=== PATIENT | female | born 1980 | race African-American/Black ===

== ENCOUNTER 2016-07-03 14:22 | Emergency (ER) | payer BC ==
[~2016-07-03] VITALS: Wt 94.0 kg
[~2016-07-03 14:22] MED LIST: BACTDS PO; CEPH-443 PO; FLUC150T17 PO; IBUP-1542 PO
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
== END 2016-07-03 15:11 | disposition home or self-care (01) ==
LOC: FTE 14:22 → E/R 15:11
DX: R04.0 Epistaxis (principal); B34.9 Viral infection, unspecified; R07.9 Chest pain, unspecified
CPT/HCPCS: 93005

== ENCOUNTER 2017-04-27 04:31 | Emergency (ER) | payer BC ==
[~2017-04-27] VITALS: Ht 160 cm; Wt 110.0 kg
[2017-04-27 04:32] VITALS: Ht 160 cm; Wt 110.0 kg
[2017-04-27] MEDS ORDERED: traMADol 50 MG TAB PO ONE (05:00)
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
--- NOTE | 2017-04-27 05:25 | RADRPT ---
PROCEDURE: Right wrist series CLINICAL INDICATION: Rib is pain TECHNIQUE: AP oblique and lateral views with ulnar deviation view COMPARISON: None available FINDINGS: No acute fractures or dislocations are present. The visualized soft tissues and bony mineralization are normal. No radio dense foreign bodies are present other than jewelry noted on the fourth digit. The joint spaces are intact. IMPRESSION: 1. Normal right wrist series RPTAT: HDC .Kathryn Marin MD, MD Date Time Electronically viewed and signed by .Kathryn Marin MD, on 04/27/2017 05:25 .C/
[2017-04-27] MEDS ORDERED: IBUP-1542 PO (05:35)
[2017-04-27] MEDS ORDERED: TRAM50TA2 PO (05:35)
== END 2017-04-27 05:57 | disposition home or self-care (01) ==
LOC: FTE 04:31
DX: S63.501A Unspecified sprain of right wrist, initial encounter (principal); V89.2XXA Person injured in unspecified motor-vehicle accident, traffic, initial encounter

== ENCOUNTER 2018-01-14 22:08 | Emergency (ER) | END 2018-01-15 04:26 | disposition home or self-care (01) ==

== ENCOUNTER 2018-06-09 05:59 | Emergency (ER) | payer BC ==
[~2018-06-09] VITALS: Ht 161.3 cm; Wt 111.0 kg
[~2018-06-09 05:59] MED LIST changes: +FLUC150T PO; -FLUC150T17 PO; +TRAM50TA2 PO
[2018-06-09 06:06] VITALS: BP 143/84; PULSE 90; RESP 20; Ht 161.3 cm; Wt 111.0 kg
[2018-06-09] MEDS ORDERED: ALBU18HF INHALATION (07:28)
[2018-06-09] MEDS ORDERED: PRED20TA PO (07:28)
[2018-06-09] MEDS ORDERED: D-ME473S2 PO (07:28)
[2018-06-09] MEDS ORDERED: CETI10CA PO (07:28)
--- NOTE | 2018-06-09 08:24 | ERD ---
ER Documentation Chief Complaint Chief Complaint c/o off and on dry cough x1 week. HPI 38-year-old female patient with no significant past medical history presents to the ED complaining of intermittent dry cough that started for 1 week. Patient reports that she was exposed to a certain type of dog, 1 week ago, and feels like this could be the reason why triggered her cough. Patient reports that when she coughs, the cough is unstoppable. Reports that she has been trying Robitussin, halls cough drops, without any relief. Denies any sick contacts. Denies any fever, chills, nausea, vomiting, diarrhea, neck stiffness, chest pain, shortness of breath. ROS All systems reviewed and are negative except as per history of present illness. Medications Home Meds Active Scripts Prednisone* (Prednisone*) 20 Mg Tab, 40 MG PO DAILY for 4 Days, TAB Prov:DESMOND GUERRA PA-C 06/09/18 Cetirizine Hcl* (Zyrtec*) 10 Mg Capsule, 10 MG PO DAILY, #10 TAB.CHEW Prov:DESMOND GUERRA PA-C 06/09/18 Albuterol Sulfate* (Ventolin HFA*) 18 Gm Hfa.aer.ad, 2 PUFF INHALATION Q4H, #1 INHALER Prov:DESMOND GUERRA PA-C 06/09/18 Dextromethorphan Hb-Promethazine Hcl* (Promethazine DM* Syrup) 473 Ml Syrup, 5 ML PO Q6 PRN for COUGH, #100 ML Prov:DESMOND GUERRA PA-C 06/09/18 Tramadol HCl (Tramadol HCl) 50 Mg Tablet, 50 MG PO Q6 PRN for PAIN, #20 TAB Prov:LUIZ DRAPER PA-C 01/15/18 Tramadol HCl (Tramadol HCl) 50 Mg Tablet, 50 MG PO Q6 for SEVERE PAIN LEVEL 7- 10, #20 TAB Prov:SHERYL SANTIAGO NP 04/27/17 Ibuprofen* (Motrin*) 600 Mg Tab, 600 MG PO Q6H PRN for PAIN AND OR ELEVATED TEMP, #30 TAB Prov:SHERYL SANTIAGO NP 04/27/17 Fluconazole* (Diflucan*) 150 Mg Tablet, 150 MG PO ONCE, #1 TAB Prov:RAVEN CURIEL 03/23/16 Ibuprofen* (Motrin*) 600 Mg Tab, 600 MG PO Q6, #30 TAB Prov:RAVEN CURIEL 03/23/16 Sulfamethoxazole-Trimethoprim* (Bactrim* DS) 800-160 Mg Tab, 1 TAB PO BID for 7 Days, TAB Prov:RAVEN CURIEL 03/23/16 Cephalexin* (Keflex*) 500 Mg Capsule, 500 MG PO BID for 7 Days, CAP Prov:RAVEN CURIEL 03/23/16 Allergies Allergies: Coded Allergies: iodine (Verified Allergy, Unknown, 03/23/16) PMhx/Soc Medical and Surgical Hx: pt denies Medical Hx, pt denies Surgical Hx History of Surgery: No Anesthesia Reaction: No Hx Neurological Disorder: No Hx Respiratory Disorders: No Hx Cardiac Disorders: No Hx Psychiatric Problems: No Hx Miscellaneous Medical Probl: No Hx Alcohol Use: No Hx Substance Use: No Hx Tobacco Use: No Smoking Status: Never smoker FmHx Family History: No diabetes, No coronary disease Physical Exam Vitals Vital Signs Date Temp Pulse Resp B/P (MAP) Pulse Ox O2 O2 Flow FiO2 Time Delivery Rate 06/09/18 97.9 90 20 143/84 100 06:06 (103) Physical Exam Const: [id number], well-nourished. In no acute distress. Head: Atraumatic, normocephalic Eyes: Normal Conjunctiva without injection. No purulent discharge. PERRL. EOMI ENT: Normal external ear. Ear canal without erythema. Tympanic membrane pearly spangler without effusion or bulging. Nasal canal clear with normal turbinates. Moist oropharynx without tonsillar exudates. Non-erythematous pharynx. Uvula midline. No drooling. No trismus. Neck: Full range of motion. No meningismus. No cervical lymphadenopathy. Resp: Clear to auscultation bilaterally. No wheezing, rhonchi, rales, or crackles. No accessory muscle use. No retractions. Cardio: Regular rate and rhythm. No murmurs, rubs or gallops. Abd: Soft, non tender, non distended. Normal bowel sounds. No palpable masses. No rebound tenderness. No guarding. Skin: No petechiae or rashes Back: No midline tenderness. No CVA tenderness. Ext: No cyanosis, or edema. Neur: Awake and alert. Psych: Normal Mood and Affect Results 24 hrs Laboratory Tests Test 06/09/18 06:42 POC Beta HCG, Qualitative NEGATIVE Procedures/MDM 38-year-old female patient with no significant past medical history presents to the ED complaining of intermittent cough that started 1 week ago. Patient is afebrile and nontoxic-appearing. Urine negative. Pertussis DFA test was ordered to further evaluate patient since patient appears to have a coughing spell when she does cough. Pending pertussis results. Frontals include viral URI. There is a low suspicion for pneumonia, pneumothorax, mononucleosis, pulmonary embolism, epiglottitis, otitis media, otitis externa, viral/strep pharyngitis, sinusitis, myocarditis, pericarditis, endocarditis, peritonsillar abscess, mastoiditis, retropharyngeal abscess, meningitis, sepsis, acute abdomen or other emergent conditions. Fluids, rest, and symptomatic treatment are recommended for the management of patient's symptoms. Diagnosis: Cough Discharge medications: Promethazine DM, Prednisone, Zyrtec, Ventolin Follow up with primary care physician in 1-2 days. Instructed patient to return to the ED sooner for any worsening symptoms. Patient's questions were answered. Patient is hemodynamically stable. Patient understood and agreed with discharge plan. Patient discharged stable. Disclaimer: Inadvertent spelling and grammatical errors are likely due to E HR/dictation software use and do not reflect on the overall quality of patient care. Also, please note that the electronic time recorded on this note does not necessarily reflect the actual time of the patient encounter. Departure Diagnosis: Primary Impression: Cough Condition: Stable Patient Instructions: Pertussis (Whooping Cough): When to Go to Emergency, Cough, Chronic, Uncertain Cause, (Adult), Uri, Viral, No Abx (Adult) Referrals: COMMUNITY CLINICS YOU HAVE RECEIVED A MEDICAL SCREENING EXAM AND THE RESULTS INDICATE THAT YOU DO NOT HAVE A CONDITION THAT REQUIRES URGENT TREATMENT IN THE EMERGENCY DEPARTMENT. FURTHER EVALUATION AND TREATMENT OF YOUR CONDITION CAN WAIT UNTIL YOU ARE SEEN IN YOUR DOCTORS OFFICE WITHIN THE NEXT 1-2 DAYS. IT IS YOUR RESPONSIBILITY TO MAKE AN APPOINTMENT FOR FOLOW-UP CARE. IF YOU HAVE A PRIMARY DOCTOR --you should call your primary doctor and schedule an appointment IF YOU DO NOT HAVE A PRIMARY DOCTOR YOU CAN CALL OUR PHYSICIAN REFERRAL HOTLINE AT IF YOU CAN NOT AFFORD TO SEE A PHYSICIAN YOU CAN CHOSE FROM THE FOLLOWING [facility] [address] [place] [facility] [address] [facility] [address] [facility] [address] [facility] [address] [facility]. [facility] [address] [facility]. [facility] YOU HAVE RECEIVED A MEDICAL SCREENING EXAM AND THE RESULTS INDICATE THAT YOU DO NOT HAVE A CONDITION THAT REQUIRES URGENT TREATMENT IN THE EMERGENCY DEPARTMENT. FURTHER EVALUATION AND TREATMENT OF YOUR CONDITION CAN WAIT UNTIL YOU ARE SEEN IN YOUR DOCTORS OFFICE WITHIN THE NEXT 1-2 DAYS. IT IS YOUR RESPONSIBILITY TO MAKE AN APPOINTMENT FOR FOLOW-UP CARE. IF YOU HAVE A PRIMARY DOCTOR --you should call your primary doctor and schedule and appointment IF YOU DO NOT HAVE A PRIMARY DOCTOR YOU CAN CALL OUR PHYSICIAN REFERRAL HOTLINE AT . IF YOU CAN NOT AFFORD TO SEE A PHYSICIAN YOU CAN CHOSE FROM THE FOLLOWING [facility] INSTITUTIONS: [place] [address] [place] [address] [facility] [address] [place] [address] [facility] + [facility] [address] [place] [address] [facility]SPECIALTIES Additional Instructions: Call your primary care doctor TOMORROW for an appointment during the next 2-3 days.See the doctor sooner or return here if your condition worsens before your appointment time. DESMOND GUERRA PA-C Jun 09, 2018 07:46
== END 2018-06-09 07:44 | disposition home or self-care (01) ==
LOC: FTE 05:59
DX: R05 Cough (principal)
CPT/HCPCS: 81025; 87206; 99283